=== PATIENT | male | born 1980 | race Caucasian/White ===

== ENCOUNTER → 2020-06-27 | Outpatient (CLI) | payer SELFPAY | END | disposition home or self-care (01) | LOC: COVID19 13:33 | PROVIDERS: ATTEND Internal Medicine | DX: R50.9 Fever, unspecified (principal); R51.9 Headache, unspecified; Z20.828 Contact with and (suspected) exposure to other viral communicable diseases ==

== ENCOUNTER 2022-02-18 15:49 | Emergency (ER) | payer BC ==
[~2022-02-18] VITALS: Ht 190.5 cm; Wt 120.2 kg
== END 2022-02-18 19:14 | disposition home or self-care (01) ==
LOC: ED 15:49
DX: J02.9 Acute pharyngitis, unspecified (principal); Z20.822 Contact with and (suspected) exposure to COVID-19; R53.83 Other fatigue

== ENCOUNTER → 2022-03-09 | Outpatient (CLI) | payer BC | END | disposition home or self-care (01) | LOC: RAD 15:15 | PROVIDERS: ATTEND Chiropractor | DX: M47.817 Spondylosis without myelopathy or radiculopathy, lumbosacral region (principal) ==

== ENCOUNTER 2022-09-29 10:35 | Emergency (ER) | payer BC ==
[~2022-09-29] VITALS: Ht 190.5 cm; Wt 115.7 kg
[2022-09-29 11:13] LABS: BILIRUBIN Negative (Negative); BLOOD Negative (Negative); CLARITY Clear (Clear); COLOR Yellow (Yellow); GLUCOSE Negative (Negative); KETONE Trace (Negative); LEUKO ESTERASE 1+ (Negative); NITRITE Negative (Negative); SPECIFIC GRAVITY >= 1.030 (1.001-1.030)
[2022-09-29 11:25] LABS: BACTERIA 2+; EPITHELIAL CELLS 51-100; MUCOUS 1+; RBC 0-2 rbc/hpf (0-2)
[2022-09-29] MEDS ORDERED: LEVOFLOXACIN750 M2 PO (12:35)
== END 2022-09-29 13:04 | disposition home or self-care (01) ==
LOC: ED 10:35
PROVIDERS: Emergency Medicine
DX: N39.0 Urinary tract infection, site not specified (principal)